=== PATIENT | male | born 2000 | race Caucasian/White ===

== ENCOUNTER 2020-05-28 05:26 | Emergency (ER) | payer MEDICAID, SELFPAY ==
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
[2020-05-28 05:30] VITALS: BP 108/55; PULSE 102; RESP 16; TEMP 36.1; O2SAT 98
[2020-05-28] MEDS: HYDROcodone/acetaminophen (*CRX) 5-325 MG TABLET 1 TAB PO (05:55)
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
--- NOTE | 2020-05-28 06:26 | PC.NURSE ---
right ulnar gutter splint applied as ordered, pt denice well.
[2020-05-28 06:27] VITALS: BP 110/67; PULSE 71; RESP 16; TEMP 36.9; O2SAT 99
== END 2020-05-28 06:36 | disposition home or self-care (01) ==
LOC: ANHED 06:28
PROVIDERS: Emergency Provider Emergency Medicine
DX: S62.316A Displaced fracture of base of fifth metacarpal bone, right hand, initial encounter for closed fracture (principal); Y04.0XXA Assault by unarmed brawl or fight, initial encounter
CPT/HCPCS: 29125; 73130; 99284; A9270